=== PATIENT | male | born 1965 | race Caucasian/White ===

== ENCOUNTER 2016-06-05 11:42 | Emergency (ER) | payer MEDICARE, OTHER ==
[~2016-06-05] VITALS: Ht 175.3 cm; Wt 129.0 kg
[~2016-06-05 11:42] MED LIST: ALPR1TAB7 PO; BUSP30TA2 PO; CALC-190 PO; CITA10TA9 PO; CLOP75TA3 PO; DULO60CA42 PO; FLUT9.9S NS; GABA-502 PO; LAMO200T2 PO; LIP40 PO; METF500T4 PO; METH750T3 PO; MULT-1073 PO; NIT3 SL; OMEP40CA36 PO; OXYC15TA45 PO; PROP40TA5 PO; TAMS0.4C29 PO; WARF5TAB7 PO; WARF7.5T4 PO
[2016-06-05 11:44] VITALS: BP 132/81; PULSE 72; RESP 15; O2SAT 97
--- NOTE | 2016-06-05 12:02 | ED.REPORT ---
HPI-Headache Date of Service Jun 05, 2016 ED Provider: Sav Dye Patient is a 51 year old male who presents to the ED complaining of a headache onset 4 days ago. Associated symptoms include nausea and fatigue. He was experiencing chills and myalgia but it has since resolved. He denies blurred vision, numbness, weakness, vomiting, abdominal pain, chest pain, or any other symptoms. He reports that he has been sleeping for the last 4 days. He has been to the ED on multiple occasions for similar symptoms (most recently , 2 months ago). His symptoms are the same as previously. Nursing Notes Stated Complaint: MIGRAINE Chief Complaint: Headache Nursing Notes Reviewed: Yes Allergies: Coded Allergies: pseudoephedrine (Verified Allergy, Severe, HYPERACTIVITY/DELIRIUM ( NEOSYNEPHRINE), 12/18/15) codeine (Verified Adverse Reaction, Intermediate, tremors, 12/18/15) shellfish derived (Verified Adverse Reaction, Unknown, tremors, 12/18/15) Scheduled Alprazolam (Alprazolam) 1 Mg Tablet 1 MG PO TID Atorvastatin (Lipitor) 40 Mg Tablet 40 MG PO DAILY Buspirone (Buspirone) 30 Mg Tablet 30 MG PO AM Buspirone (Buspirone) 30 Mg Tablet 60 MG PO PM Calcium Carb&Cit/Mag12/Vit D3 (Calcium 500 mg Tablet) 1 Each Tablet 1 EACH PO DAILY Citalopram (Citalopram) 10 Mg Tablet 10 MG PO DAILY Clopidogrel Bisulfate (Plavix) 75 Mg Tablet 75 MG PO DAILY Duloxetine (Cymbalta) 60 Mg Capsule.dr 60 MG PO DAILY Fluticasone Propionate (Flonase Allergy Relief) 50 Mcg/Actuation [place].susp 9.9 ML NS DAILY Gabapentin (Gabapentin) 300 Mg Capsule 600 MG PO QAM Gabapentin (Gabapentin) 300 Mg Capsule 900 MG PO HS Lamotrigine (Lamotrigine) 200 Mg Tablet 2 TAB PO DAILY Metformin (Metformin) 500 Mg Tablet 500 MG PO BID Multivits-Min/FA/Lycopene/Lut (Centrum Silver Tablet) 1 Each Tablet 1 EACH PO DAILY Omeprazole (Omeprazole) 40 Mg Capsule.dr 40 MG PO BID Propranolol HCl (Propranolol HCl) 40 Mg Tablet 40 MG PO TID Tamsulosin ER (Tamsulosin ER) 0.4 Mg Cap.er.24h 0.4 MG PO DAILY Warfarin Sodium (Warfarin Sodium) 5 Mg Tablet 5 MG PO ,,tue-tue Warfarin Sodium (Warfarin Sodium) 7.5 Mg Tablet 7.5 MG PO mon-wed-fri Scheduled PRN Methocarbamol (Methocarbamol) 750 Mg Tablet 750 MG PO TID PRN PRN For Spasm Nitroglycerin SL (Nitrostat) 0.3 Mg Tab.subl 0.3 MG SL Q5MIN PRN PRN ANGINA Oxycodone (Roxicodone) 15 Mg Tablet 15 MG PO TID PRN PRN For Pain General Time Seen by MD: 12:01 Chief Complaint Headache Hx Obtained From: Patient Arrived By: Walk-in Sudden in Onset?: Yes Onset Occurred: 4 days ago Symptom Duration: Since onset Risk-Headache )( SAH Risk Stratification HypertensionNo Prior SAH RF Statements: Risk factors reviewed )( IC Mass Risk Stratification No HIV RF Statements: Risk factors reviewed Past Medical History Past Medical History Notes: PCP: Dr. Montgomery Past Medical History PE in 2013 [place] 1. Frequent headaches 2. Chronic low back pain, s/p L4-S1 spinal fusion 3. Chronic hypertension 4. Chronic hypertriglyceridemia 5. Hyperlipidemia 6. Benign prostatic hypertrophy 7. Obstructive sleep apnea 8. Depression with anxiety. 9. Chronic rhinitis. 10. Claustrophobia. 11. Erectile dysfunction 12. 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 13. He has had HIV testing every year up until 2011, which has been negative. He does not believe he has ever been tested for hepatitis viruses. 14. History of deep venous thrombosis and pulmonary embolus in 2013. 15. Please note patient has a medication history of albuterol; but, he was only using this topically whenever he used fentanyl patches to avoid a contact dermatitis from the patch. He has no history of pulmonary disease requiring albuterol inhaler. Reports: Diabetes mellitus, Hypertension Past Surgical History cardiac stent Bilateral carpal tunnel releases L4-S1 spinal fusion L2-L3 spinal bore Tracheostomy initially placed for obstructive sleep apnea, removed approximately 2007. Reports: Tonsillectomy Family History Significant family history of coronary artery disease. All of the paternal and maternal male members of his family have of myocardial infarction; his two brothers both had myocardial infarctions before they were 40 years of age. His mother unfortunately only 2 years from an apparent bowel perforation. Smoking History Current Every Day Smoker Social History Hx alcoholism Uses Marijuana derivative Alcohol Use: "Social" Other Social History: Good social support, , Local resident Ambulatory Status Independent Review of Systems Constitutional: Reports: Fatigue Eyes: Denies: Blurred bilateral, Diplopia GI: Reports: Nausea, Denies: Abdominal pain, Vomiting Neurologic: Reports: Headache, Denies: Numbness, Weakness Complete sys rev & neg: except as marked. Cardiovascular: Denies: Chest pain Physical Exam Initial Vital Signs Vital Signs (First) Date Time Temp Pulse Resp B/P Pulse Ox O2 Delivery O2 Flow Rate FiO2 06/05/16 11:44 36.0 72 15 132/81 97 Initial VS: Reviewed Respiratory: Breath sounds normal, Clear to auscultation, No respiratory distress Cardiovascular: Regular rate & rhythm, Heart sounds normal Abdomen / GI: Soft, Non-tender Skin: Warm, Dry Psychiatric: Mood/affect normal, Behavior normal, Normal thought content General/Constitutional: Awake, Alert, Well developed Head / Eyes: Atraumatic, Normocephalic, PERRL, EOMI Neck: Supple Neurologic: Oriented X3, Speech NL, No sensory deficits Interpretation & Diagnostics Lab Results Interpretation Test 06/05/16 12:25 Hold Barnett Top Tube Received (Received) Re-Eval/Medical Decision Re-Evaluation/Progress : Time of Eval: 13:56 )( Patient Status: Condition improved Re-Evaluation/Progress Note: Rechecked patient. He reports his headache is gone. Discussed plan for discharge. Patient understands and agrees with plan. All questions addressed at this time. Counseled Regarding: Diagnosis, Need for follow-up, When/why to return to ED Discharge & Departure Impression: Primary Impression: Migraine Migraine type: without aura Status migrainosus presence: with status migrainosus Intractability: not intractable Qualified Code: G43.001 - Migraine without aura, not intractable, with status migrainosus Disposition: Home Discharge Condition All VS Reviewed: Yes Condition: Improved Patient Instructions: Migraine Headache (ED) Additional Instructions: No dangerous or unusual cause for your headache is discovered. Resume previous medication and prophylactic treatment for migraine. Referrals: NOPCP (PCP) Scribe Attestation Portions of this note were transcribed by Gualberto Ortiz. I, Dr. Dye personally performed the history, physical exam and medical decision-making; I reviewed and confirmed the accuracy of the information in the transcribed note. Signed by: Gualberto Ortiz 06/05/16, 1403 Sav Dye MD Jun 05, 2016 12:02 GUALBERTO ORTIZ Jun 05, 2016 12:14
[2016-06-05] MEDS ORDERED: MetoCLOpramide 5 mg/mL 2 mL Inj IVPUSH ONE (12:10)
[2016-06-05] MEDS ORDERED: Ondansetron 2 mg/mL 2 mL Inj IVPUSH ONE (12:10)
[2016-06-05] MEDS ORDERED: Dexamethasone 10 mg/mL Inj IVPUSH ONE (12:10)
[2016-06-05] MEDS ORDERED: 0.9% Sodium Chloride 500 ML IV ONE (12:10)
[2016-06-05] MEDS ORDERED: Haloperidol 5 mg/mL Inj IVPUSH ONE (12:10)
== END 2016-06-05 14:07 | disposition home or self-care (01) ==
LOC: SED 11:42
DX: G43.001 Migraine without aura, not intractable, with status migrainosus (principal); I10 Essential (primary) hypertension; E11.9 Type 2 diabetes mellitus without complications; I25.2 Old myocardial infarction; F17.200 Nicotine dependence, unspecified, uncomplicated; F12.10 Cannabis abuse, uncomplicated; Z95.5 Presence of coronary angioplasty implant and graft; Z86.711 Personal history of pulmonary embolism; Z86.79 Personal history of other diseases of the circulatory system; Z79.01 Long term (current) use of anticoagulants; Z79.02 Long term (current) use of antithrombotics/antiplatelets; Z79.84 Long term (current) use of oral hypoglycemic drugs; Z88.8 Allergy status to other drugs, medicaments and biological substances; Z88.5 Allergy status to narcotic agent
CPT/HCPCS: 96361; 96374; 96375; 99284; J1100; J1200; J1630; J2405; J2765; J7040

== ENCOUNTER 2016-07-01 14:47 | Emergency (ER) | payer MEDICARE, OTHER ==
[~2016-07-01] VITALS: Ht 175.3 cm; Wt 132.3 kg
[2016-07-01 14:49] VITALS: BP 126/83; PULSE 65; RESP 18; O2SAT 94
--- NOTE | 2016-07-01 17:34 | DRSVH ---
PROCEDURE: X-RAY TOES, TWO VIEWS INDICATIONS: trauma,fall TECHNIQUE: 3 views of the left first toe(s) acquired. COMPARISON: None. FINDINGS: Bones: Comminuted, nondisplaced fracture of the first proximal phalange is noted. Fracture lucencie s extend into the interphalange joint. Soft tissues: No suspicious soft tissue densities. IMPRESSION: Nondisplaced first proximal phalange fracture. Dictated by: Laney Lu MD, PhD on 07/01/2016 at 17:31 Approved by: Laney Lu MD, PhD on 07/01/2016 at 17:32
--- NOTE | 2016-07-01 17:35 | DRSVH ---
PROCEDURE: X-RAY CHEST, TWO VIEWS ([id number]) INDICATIONS: left anterior chest pain with movement and palpati TECHNIQUE: 2 views of the chest were acquired. COMPARISON: [facility], , CHEST 1VW (PORTABLE), 10/10/2014, 12:21. FINDINGS: Surgical changes and devices: Cervical spine fixation hardware. Surgical clips are noted over the r ight neck base. Lungs and pleura: No pleural effusions or pneumothorax. Lungs are clear. Mediastinum: Mediastinal contours are normal. Heart size is normal. Bones and chest wall: No suspicious bony abnormalities. Soft tissues appear unremarkable. IMPRESSION: No acute cardiopulmonary disease process. Dictated by: Laney Lu MD, PhD on 07/01/2016 at 17:33 Approved by: Laney Lu MD, PhD on 07/01/2016 at 17:33
--- NOTE | 2016-07-01 18:03 | ED.REPORT ---
HPI-Trauma Minor / Fall Date of Service Jul 01, 2016 ED Provider: Naif Eastman MD The patient is a 51 year old male w/ a hx of DM II, CAD, PE, and DVT who presents to the ED with pain in his left great toe following a GLF yesterday. He was leaving the hospital yesterday at 1500 and jammed his left great toe into a cement curb in the parking lot, fell onto his left chest and shoulder and felt immediate pain. He describes his toe pain as sharp, constant, stabbing , 8/10 severity, and it does not radiate. His left chest is also painful where he fell. He denies LOC, SOB and did not hit his head. Nursing Notes Stated Complaint: GLF Chief Complaint: Multiple Trauma/Fall Nursing Notes Reviewed: Yes Allergies: Coded Allergies: pseudoephedrine (Verified Allergy, Severe, HYPERACTIVITY/DELIRIUM ( NEOSYNEPHRINE), 07/01/16) codeine (Verified Adverse Reaction, Intermediate, tremors, 07/01/16) shellfish derived (Verified Adverse Reaction, Unknown, tremors, 07/01/16) Scheduled Alprazolam (Alprazolam) 1 Mg Tablet 1 MG PO TID Atorvastatin (Lipitor) 40 Mg Tablet 40 MG PO DAILY Buspirone (Buspirone) 30 Mg Tablet 30 MG PO AM Buspirone (Buspirone) 30 Mg Tablet 60 MG PO PM Calcium Carb&Cit/Mag12/Vit D3 (Calcium 500 mg Tablet) 1 Each Tablet 1 EACH PO DAILY Citalopram (Citalopram) 10 Mg Tablet 10 MG PO DAILY Clopidogrel Bisulfate (Plavix) 75 Mg Tablet 75 MG PO DAILY Duloxetine (Cymbalta) 60 Mg Capsule.dr 60 MG PO DAILY Fluticasone Propionate (Flonase Allergy Relief) 50 Mcg/Actuation [place].susp 9.9 ML NS DAILY Gabapentin (Gabapentin) 300 Mg Capsule 600 MG PO QAM Gabapentin (Gabapentin) 300 Mg Capsule 900 MG PO HS Lamotrigine (Lamotrigine) 200 Mg Tablet 2 TAB PO DAILY Metformin (Metformin) 500 Mg Tablet 500 MG PO BID Multivits-Min/FA/Lycopene/Lut (Centrum Silver Tablet) 1 Each Tablet 1 EACH PO DAILY Omeprazole (Omeprazole) 40 Mg Capsule.dr 40 MG PO BID Propranolol HCl (Propranolol HCl) 40 Mg Tablet 40 MG PO TID Tamsulosin ER (Tamsulosin ER) 0.4 Mg Cap.er.24h 0.4 MG PO DAILY Warfarin Sodium (Warfarin Sodium) 5 Mg Tablet 5 MG PO ,,tue-tue Warfarin Sodium (Warfarin Sodium) 7.5 Mg Tablet 7.5 MG PO mon-wed-fri Scheduled PRN Methocarbamol (Methocarbamol) 750 Mg Tablet 750 MG PO TID PRN PRN For Spasm Nitroglycerin SL (Nitrostat) 0.3 Mg Tab.subl 0.3 MG SL Q5MIN PRN PRN ANGINA Oxycodone (Roxicodone) 15 Mg Tablet 15 MG PO TID PRN PRN For Pain General Time Seen by MD: 18:01 Chief Complaint Other (left great toe pain) Hx Obtained From: Patient Arrived By: Walk-in Onset Occurred: Just prior to arrival Symptom Duration: Since onset Caused by: Accidental Location: Foot left Quality: Painful, Stabbing Severity: Current: Pain level 8 out of 10 Recent Healthcare: Recent doctor visit Similar Sx Previous: No Past Medical History Past Medical History Notes: PCP: Dr. Montgomery Past Medical History PE in 2013 [place] 1. Frequent headaches 2. Chronic low back pain, s/p L4-S1 spinal fusion 3. Chronic hypertension 4. Chronic hypertriglyceridemia 5. Hyperlipidemia 6. Benign prostatic hypertrophy 7. Obstructive sleep apnea 8. Depression with anxiety. 9. Chronic rhinitis. 10. Claustrophobia. 11. Erectile dysfunction 12. 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 13. He has had HIV testing every year up until 2011, which has been negative. He does not believe he has ever been tested for hepatitis viruses. 14. History of deep venous thrombosis and pulmonary embolus in 2013. 15. Please note patient has a medication history of albuterol; but, he was only using this topically whenever he used fentanyl patches to avoid a contact dermatitis from the patch. He has no history of pulmonary disease requiring albuterol inhaler. Reports: Diabetes mellitus, Hypertension Past Surgical History cardiac stent Bilateral carpal tunnel releases L4-S1 spinal fusion L2-L3 spinal bore Tracheostomy initially placed for obstructive sleep apnea, removed approximately 2007. Reports: Tonsillectomy Family History Significant family history of coronary artery disease. All of the paternal and maternal male members of his family have of myocardial infarction; his two brothers both had myocardial infarctions before they were 40 years of age. His mother unfortunately only 2 years from an apparent bowel perforation. Smoking History Current Every Day Smoker Social History Hx alcoholism Uses Marijuana derivative Alcohol Use: "Social" Other Social History: Good social support, , Local resident Ambulatory Status Independent Review of Systems Respiratory: Denies: Shortness of breath Musculoskeletal: Reports: Extremity pain (left great toe), Extremity swelling ( left great toe) Neurologic: Denies: Change LOC Complete sys rev & neg: except as marked. Cardiovascular: Reports: Chest pain Physical Exam Physical Exam Notes: Initial Vital Signs Vital Signs (First) Date Time Temp Pulse Resp B/P Pulse Ox O2 Delivery O2 Flow Rate FiO2 07/01/16 14:49 36.4 65 18 126/83 94 Room Air Initial VS: Reviewed Head / Eyes: Atraumatic, Normocephalic, PERRL ENT: Mucous membranes moist, Conjunctiva normal Abdomen / GI: Soft, Non-tender Extremities: Vascular intact, Neuro intact, No swelling Skin: Warm, Dry Neurologic: Alert, Oriented Psychiatric: Mood/affect normal, Behavior normal General/Constitutional: Awake, Alert, Cooperative Neck: Atraumatic, Supple Respiratory / Chest: Atraumatic, Breath sounds NL, Breath sounds = bilat, No crepitus mild tenderness in upper, left, chest wall Cardiovascular: Heart rate NL, Regular rhythm, Heart sounds NL Left Great Toe: Positive: Ecchymosis present, Swelling present..., Tenderness present... Nondisplaced first proximal phalange fracture Interpretation & Diagnostics X-Ray Chest Interpretation Chest Xray Interpretation: IMPRESSION: No acute cardiopulmonary disease process Dictated by: Laney Lu MD, PhD on 07/01/2016 at 17:33 Approved by: Laney Lu MD, PhD on 07/01/2016 at 17:33 View: Portable Interpretation / Wet Read by: Interpret - Radiologist X-Ray Interpretation Xray Interpretation: IMPRESSION: Nondisplaced first proximal phalange fracture. Dictated by: Laney Lu MD, PhD on 07/01/2016 at 17:31 Approved by: Laney Lu MD, PhD on 07/01/2016 at 17:32 X-Ray Ordered: Foot left Interpretation / Wet Read by: Interpret - Radiologist Re-Eval/Medical Decision Counseled Regarding: Diagnosis, Lab results, Need for follow-up, When/why to return to ED Discharge & Departure Impression: Primary Impression: Toe fracture, left Encounter type: initial encounter Toe: unspecified toe Fracture type: closed Fracture alignment: nondisplaced Qualified Code: S92.912A - Unspecified fracture of left toe(s), initial encounter for closed fracture Disposition: Home Discharge Condition All VS Reviewed: Yes Condition: Stable Additional Instructions: You have fractured your left great toe. Continue using oxycodone for pain. Ice and elevate your foot. Keep ice covered with a cloth. Using the hard soled shoe, you should be fine walking. Follow up with podiatry in the next week. Return to the Emergency Department for any new or worsening symptoms. Referrals: Hakan Estrada DPM Attestation Portion of this note were transcribed by Lucrecia Jones. I, Dr. Eastman, personally performed the history, physical exam, and medical decision-making: I reviewed and confirmed the accuracy for the information in the transcribed note. Signed by: mauricio Antony, 07/01/161999 copies to: Hakan Estrada DPM, Donald L MD Jul 01, 2016 18:02 Lucrecia Jones Jul 01, 2016 18:22
[2016-07-01 19:24] VITALS: BP 119/79; PULSE 62; O2SAT 93
== END 2016-07-01 19:26 | disposition home or self-care (01) ==
LOC: SED 14:47
DX: S92.415A Nondisplaced fracture of proximal phalanx of left great toe, initial encounter for closed fracture (principal); R07.89 Other chest pain; W18.09XA Striking against other object with subsequent fall, initial encounter; Y93.01 Activity, walking, marching and hiking; Y99.8 Other external cause status; Y92.481 Parking lot as the place of occurrence of the external cause; E11.9 Type 2 diabetes mellitus without complications; I25.10 Atherosclerotic heart disease of native coronary artery without angina pectoris; I10 Essential (primary) hypertension; G89.29 Other chronic pain; E78.5 Hyperlipidemia, unspecified; E78.1 Pure hyperglyceridemia; F12.10 Cannabis abuse, uncomplicated; F17.200 Nicotine dependence, unspecified, uncomplicated; Z86.711 Personal history of pulmonary embolism; Z86.718 Personal history of other venous thrombosis and embolism; Z95.5 Presence of coronary angioplasty implant and graft; Z79.02 Long term (current) use of antithrombotics/antiplatelets; Z79.84 Long term (current) use of oral hypoglycemic drugs; Z79.01 Long term (current) use of anticoagulants

== ENCOUNTER 2016-07-15 12:49 | Emergency (ER) | payer MEDICARE, OTHER ==
[~2016-07-15] VITALS: Ht 175.3 cm; Wt 133.2 kg
[2016-07-15 13:00] VITALS: BP 130/88; PULSE 103; RESP 18; O2SAT 98
--- NOTE | 2016-07-15 13:32 | ED.REPORT ---
HPI-Headache Date of Service Jul 15, 2016 ED Provider: Naif Eastman MD Mr. Barrientos is a pleasant 51 year old gentleman with a history of DVT, pulmonary embolism, chronic pain status post cervical and lumbar spine fusion and unstable angina status post 1 stent placement currently on warfarin, presents for head ache present for 4 days, typical of other "migraines" but has not gone away. Takes sumatriptan typically 1 pill hour, up to four pills a day, however ran out of pills Tuesday. Headaches and chronic pain managed by Dr. Menezes. He has vomited twice today . No changes in vision, but was having light sensitivity. No changes in strength, no numbness. No CP, or SOB. No auras, scintillations, or black curtains. Has a head ache all the time about this one is different as the intensity is much greater, and his "normal headaches" just feel like weight. Pain described as a spike in frontal region, not throbbing at this time. Has been seen for MATOS similar to this in the ED at least three previous times, claims the "cocktail" given has always helped. Always has lightheadedness and dizziness. Headaches started between 1-2yrs ago, had a cervical spine fusion which made headaches worse. Nursing Notes Stated Complaint: MIGRAINE Chief Complaint: Headache Nursing Notes Reviewed: Yes Allergies: Coded Allergies: pseudoephedrine (Verified Allergy, Severe, HYPERACTIVITY/DELIRIUM ( NEOSYNEPHRINE), 07/01/16) codeine (Verified Adverse Reaction, Intermediate, tremors, 07/01/16) shellfish derived (Verified Adverse Reaction, Unknown, tremors, 07/01/16) Scheduled Alprazolam (Alprazolam) 1 Mg Tablet 1 MG PO TID Atorvastatin (Lipitor) 40 Mg Tablet 40 MG PO DAILY Buspirone (Buspirone) 30 Mg Tablet 30 MG PO AM Buspirone (Buspirone) 30 Mg Tablet 60 MG PO PM Calcium Carb&Cit/Mag12/Vit D3 (Calcium 500 mg Tablet) 1 Each Tablet 1 EACH PO DAILY Citalopram (Citalopram) 10 Mg Tablet 10 MG PO DAILY Clopidogrel Bisulfate (Plavix) 75 Mg Tablet 75 MG PO DAILY Duloxetine (Cymbalta) 60 Mg Capsule.dr 60 MG PO DAILY Fluticasone Propionate (Flonase Allergy Relief) 50 Mcg/Actuation [place].susp 9.9 ML NS DAILY Gabapentin (Gabapentin) 300 Mg Capsule 600 MG PO QAM Gabapentin (Gabapentin) 300 Mg Capsule 900 MG PO HS Lamotrigine (Lamotrigine) 200 Mg Tablet 2 TAB PO DAILY Metformin (Metformin) 500 Mg Tablet 500 MG PO BID Multivits-Min/FA/Lycopene/Lut (Centrum Silver Tablet) 1 Each Tablet 1 EACH PO DAILY Omeprazole (Omeprazole) 40 Mg Capsule.dr 40 MG PO BID Propranolol HCl (Propranolol HCl) 40 Mg Tablet 40 MG PO TID Tamsulosin ER (Tamsulosin ER) 0.4 Mg Cap.er.24h 0.4 MG PO DAILY Warfarin Sodium (Warfarin Sodium) 5 Mg Tablet 5 MG PO ,,tue-tue Warfarin Sodium (Warfarin Sodium) 7.5 Mg Tablet 7.5 MG PO tue-tue-tue Scheduled PRN Methocarbamol (Methocarbamol) 750 Mg Tablet 750 MG PO TID PRN PRN For Spasm Nitroglycerin SL (Nitrostat) 0.3 Mg Tab.subl 0.3 MG SL Q5MIN PRN PRN ANGINA Oxycodone (Roxicodone) 15 Mg Tablet 15 MG PO TID PRN PRN For Pain General Time Seen by MD: 13:17 Chief Complaint Headache Sudden in Onset?: No Similar Sx Previous: Yes Risk-Headache )( SAH Risk Stratification Anticoagulation therapy Past Medical History Past Medical History Notes: PCP: Dr. Montgomery Past Medical History PE in 2013 1. Frequent headaches 2. Chronic low back pain, s/p L4-S1 spinal fusion 3. Chronic hypertension 4. cervical spine fusion apr 2015. JULIAN DM II Non-insulin using. 4. Chronic hypertriglyceridemia 5. Hyperlipidemia 6. Benign prostatic hypertrophy 7. Obstructive sleep apnea 8. Depression with anxiety. 9. Chronic rhinitis. 10. Claustrophobia. 11. Erectile dysfunction 12. 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 13. He has had HIV testing every year up until 2011, which has been negative. He does not believe he has ever been tested for hepatitis viruses. 14. History of deep venous thrombosis and pulmonary embolus in 2012. 15. Please note patient has a medication history of albuterol; but, he was only using this topically whenever he used fentanyl patches to avoid a contact dermatitis from the patch. He has no history of pulmonary disease requiring albuterol inhaler. Reports: Diabetes mellitus, Hypertension Past Surgical History cardiac stent Bilateral carpal tunnel releases L4-S1 spinal fusion L2-L3 spinal bore Tracheostomy initially placed for obstructive sleep apnea, removed approximately 2007. Reports: Tonsillectomy Family History Significant family history of coronary artery disease. All of the paternal and maternal male members of his family have of myocardial infarction; his two brothers both had myocardial infarctions before they were 40 years of age. His mother unfortunately only 2 years from an apparent bowel perforation. Smoking History Current Every Day Smoker Social History Hx alcoholism Alcohol Use: "Social" Other Social History: Good social support, , Local resident Ambulatory Status Independent Review of Systems Basic Review of Systems Respiratory: No shortness of breath, No cough Cardiovascular: No chest pain : No dysuria, No frequency Hematologic: No bruising Endocrine: No cold intolerance, No heat intolerance Complete sys rev & neg: except as marked. Physical Exam General: Laying in bed, lights off, cold washcloth over her forehead. Morbidly Obese HEENT: Normocephalic, atraumatic, EOMI grossly, poor dentition, mucous membranes moist, conjunctiva pink, no JVD, trachea is midline Cardiovascular: Regular rate and rhythm, no clicks murmurs rubs, peripheral pulses 2/4 equal bilaterally Pulmonary: Clear to auscultation bilaterally, no W/R/R. Abdominal: Soft to palpation, bowel sounds present 4, no hepatosplenomegaly. Negative rebound. Extremities: No edema appreciated. Tenderness to left hallux. No asymmetries Neuro: Neurologically grossly intact, strength is equal bilaterally upper and lower extremities. Cranial nerves II through XII intact MSK: Able to move extremities on their own volition, strength 5 out of 5 equal bilaterally to upper and lower extremities. Initial Vital Signs Vital Signs (First) Date Time Temp Pulse Resp B/P Pulse Ox O2 Delivery O2 Flow Rate FiO2 07/15/16 13:00 36.2 103 18 130/88 98 Room Air Interpretation & Diagnostics Lab Results Interpretation Test 07/15/16 13:57 Prothrombin Time 17.7sec (8.1-12.5) Prothromb Time International Ratio 1.64ratio Hold Barnett Top Tube Received (Received) Re-Eval/Medical Decision Med Decision/Clinical Course History is consistent with previous headaches requiring emergency room visits and IV medications. Neurologic exam was benign. Given his anticoagulation with warfarin, INR was checked and found to be subtherapeutic, this in conjunction with benign neurologic exam argued against a head CT. He was given IV Compazine, Benadryl, and dexamethasone, he was reevaluated a little over an hour later and said his headache had completely resolved and was now a 0 out of 10. He was instructed to follow-up with his INR clinic regarding his subtherapeutic INR at today's visit. Discharge & Departure Impression: Primary Impression: Headache Headache type: primary stabbing headache Qualified Code: G44.85 - Primary stabbing headache Disposition: Home Discharge Condition All VS Reviewed: Yes Condition: Improved Patient Instructions: Acute Headache (ED) Additional Instructions: Please follow-up with Dr. Menezes regarding your emergency room visit. If you have a recurrence of your headache that does not respond to medication as before, your welcome to return to the emergency department. Please stay hydrated drinking plenty of water If you are not doing so ready, I recommend magnesium oxide daily at least 400 mg by mouth as this may help with chronic headaches. If you have any abrupt changes in vision, chest pain, shortness of breath, or have a headache that becomes worse headache in your life please do not hesitate to return to the emergency department immediately or call 911 if necessary. Referrals: [facility] (PCP) Attending Statement Seen with Dr Velasquez on 07/15. Agree with above. Brayan Alexander DO Jul 15, 2016 13:32 Naif Eastman MD Jul 15, 2016 16:13
[2016-07-15] MEDS ORDERED: ProchlorPERazine 5 mg/mL 2 mL Inj IVPUSH ONE (13:50)
[2016-07-15] MEDS ORDERED: Dexamethasone Inj 10 MG in 0.9% Sodium Chloride-Pha MIX 50 ML IV ONE (13:50)
[2016-07-15] MEDS ORDERED: 0.9% Sodium Chloride 1,000 ML IV ONE (14:15)
[2016-07-15 14:28] LABS: INR 1.64 ratio
[2016-07-15 15:56] VITALS: BP 135/88; PULSE 97; RESP 16; O2SAT 94
[2016-07-15 16:11] VITALS: BP 135/88; PULSE 97; RESP 16; O2SAT 94
== END 2016-07-15 16:12 | disposition home or self-care (01) ==
LOC: SED 12:49
DX: G44.85 Primary stabbing headache (principal); E78.5 Hyperlipidemia, unspecified; E11.9 Type 2 diabetes mellitus without complications; I10 Essential (primary) hypertension; Z79.84 Long term (current) use of oral hypoglycemic drugs; Z79.01 Long term (current) use of anticoagulants; F17.200 Nicotine dependence, unspecified, uncomplicated
CPT/HCPCS: 36415; 85610; 90791; 96361; 96374; 96375; 99284; J0780; J1100; J1200; J7030